=== PATIENT | female | born 1975 | race Two or more races ===

== ENCOUNTER → 2024-03-12 | Outpatient (CLI) | payer MEDICAID, SELFPAY ==
--- NOTE | 2024-03-12 09:30 | XR_ITS ---
Examination: CT abdomen with intravenous contrast CT pelvis with intravenous contrast 2-D coronal reconstructions 2-D sagittal reconstructions Date and time of exam:March 12, 2024 at 1003 hours Comparison April 25, 2018 INDICATIONS: Abdominal pain constipation beginning 10 years ago. History kidney stones CTDI: vol (mGy) 9.67 DLP: (mGycm) 502 Technique: Multiple axial sections of the abdomen and pelvis have been obtained. 64 slice high-resolution scanner used. 3 mm axial sections have been obtained, post intravenous injection 60 cc [id number] 2-D sagittal, coronal reconstructions obtained. Low dose protocols were performed. One or more of the following dose reduction techniques were used; automated exposure control, adjustment of the mA and/or KV according to patient size, use of iterative reconstruction technique. Findings: No focal liver or splenic lesions Absent gallbladder No pancreatic or adrenal mass No renal or ureteral calculi, no hydronephrosis Aorta normal size Normal appendix 12 mm fat-containing umbilical hernia No bowel obstruction No diverticulitis Anteverted uterus with enlarged fundus as well as discrete 25 mm uterine fundal mass Thick-walled posterior right pelvic cystic mass 4.6 cm Urinary bladder intact Osseous structures intact IMPRESSION: Normal appendix No bowel obstruction Recommend pelvic sonography to assess enlarged fundus of the uterus, 25 mm uterine fundal mass, thick-walled posterior right pelvic cystic mass 4.6 cm
[2024-03-12 09:34] LABS: HCG Qualitative,Urine Negative
== END | disposition home or self-care (01) ==
PROVIDERS: PCP Physician Assistant; Referring Provider Physician Assistant; Visit Provider Physician Assistant
DX: R10.9 Unspecified abdominal pain (principal); Z32.00 Encounter for pregnancy test, result unknown
CPT/HCPCS: 74177; 81025; A4649; Q9967

== ENCOUNTER 2024-03-24 19:41 | Emergency (ER) | payer MEDICAID, SELFPAY ==
[2024-03-24 19:44] VITALS: BMI 37.2
[2024-03-24 20:28] VITALS: BP 172/93; PULSE 83; RESP 18; TEMP 36.9; O2SAT 96
--- NOTE | 2024-03-24 20:34 | XR_ITS ---
Examination: Pelvic ultrasound, transabdominal, complete Technique: Transabdominal ultrasound of the pelvis performed using grayscale imaging Date and time of exam: March 24, 2024 9:17 PM INDICATIONS: Thick walled right pelvic cystic mass 4.[address] examination March 12, 2024 FINDINGS: Uterus 11.4 x 4.9 x 7.1 cm Uterine fundal mass 3.0 x 2.4 cm Endometrial stripe 0.2 cm Right ovary 3.4 x 2.0 x 3.3 cm arterial flow 21 mm x 20 mm cyst Left ovary 2.7 x 1.3 x 2.2 cm arterial flow IMPRESSION: Uterine fibroid degeneration 3.0 x 2.4 x 2.4 cm Right ovarian cyst 1.6 x 2.0 x 2.1 cm
--- NOTE | 2024-03-24 20:35 | PD.EDRME ---
Rapid Medical Screening Exam E Arrival date/time: 03/24/24 19:41 48-year-old female presents emergency department complaining of right pelvic pain that has been progressively getting worse for the last 4 days. Chief Complaint: Abdominal Pain Time Seen by Provider: 03/24/24 20:27 Vital signs: Vital Signs Temperature 98.5 F 03/24/24 20:28 Pulse Rate 83 03/24/24 20:28 Respiratory Rate 18 03/24/24 20:28 Blood Pressure 172/93 H 03/24/24 20:28 Pulse Oximetry (%) 96 03/24/24 20:28 Oxygen Delivery Method Room Air 03/24/24 20:28 Vital signs reviewed by provider: Yes
[2024-03-24 21:17] LABS: Basophils # (Auto) 0.1 Thou/mm3 (0.0-0.2); Basophils % (Auto) 1 % (0-2.5); Eosinophils # (Auto) 0.1 Thou/mm3 (0.0-0.5); Eosinophils % (Auto) 1 % (0-10); Hematocrit 36.8 % (36.0-46.0); Hemoglobin 12.3 g/dL (12.0-16.0); Immature Granulocytes % (Auto) 0 % (0-0); Immature Granulocytes Auto 0.02 Thou/mm3 (0.00-0.00); Lymphocytes % (Auto) 32 % (10-50); Mean Corpuscular HGB Conc 33.4 g/dl (31.0-37.0); Mean Corpuscular Hemoglobin 28.1 pg (25.0-35.0); Mean Corpuscular Volume 84 fL (80-100); Monocytes # (Auto) 0.6 Thou/mm3 (0.0-0.8); Monocytes % (Auto) 7 % (0-12); Neutrophils # (Auto) 5.6 Thou/mm3 (1.8-7.7); Neutrophils % (Auto) 60 % (37-80); Nucleated Red Blood Cell % 0 /100 WBC (0); Platelet Count 302 Thou/mm3 (140-440); RDW Standard Deviation 42.9 fL (36.4-46.3); Red Blood Count 4.38 Miln/mm3 (4.00-5.20); White Blood Count 9.3 Thou/mm3 (3.6-11.0)
[2024-03-24 21:47] LABS: Alanine Aminotransferase 18 U/L (10-49); Albumin, Serum 4.8 gm/dL (3.5-5.0); Albumin/Globulin Ratio 1.6 (1.2-2.2); Alkaline Phosphatase 78 U/L (46-116); Anion Gap 9 (7-16); Aspartate Amino Transferase 21 U/L (0-34); BUN/Creatinine Ratio 19 Ratio (12-20); Blood Urea Nitrogen 15 mg/dL (9-23); Carbon Dioxide 26.3 mMol/L (20.0-31.0); Chloride 104 mMol/L (98-107); Creatinine (Component) 0.8 mg/dL (0.6-1.3); Estimated Creatinine Clearance 75.4 mL/min (>60); Glucose 90 mg/dL (74-106); Lipase 51 U/L (12-53); Osmolality,Calculated 278 (275-295); Potassium 3.8 mMol/L (3.4-5.1); Sodium 139 mMol/L (136-145); Total Protein 7.8 gm/dL (5.7-8.2); eGFR > 60 See Note
[2024-03-24 22:03] LABS: HCG,Qualitative Serum Negative
[2024-03-24 22:13] VITALS: BP 171/98; PULSE 64; RESP 19; TEMP 36.9; O2SAT 99
[2024-03-24] MEDS: KETOROLAC INJ 60 MG/2 ML VIAL 30 MG IM (22:13)
[2024-03-24 22:18] LABS: Collection Type, Urine Clean Catch
[2024-03-24 22:29] LABS: Bacteria,Urine Rare; Bilirubin,Urine Negative (Negative); Blood,Urine Negative (Negative); Clarity,Urine Clear (Clear/Hazy); Color,Urine Colorless (Lt Yel-Yel); Culture Indicated,Urine Not Indicated; Glucose, Urine Negative (Negative); Ketones,Urine Negative (Negative); Leukocyte Esterase,Urine Negative (Negative); Nitrite,Urine Negative (Negative); PH,Urine 6.5 (5.0-7.0); Protein,Urine Negative (Neg - Trace); RBC,Urine < 1 /hpf (0-3); Squamous Epithelial Cell,Urine 1 /hpf (0-5); Urobilinogen,Urine Negative mg/dL (0.0-1.0); WBC,Urine < 1 /hpf (0-5)
--- NOTE | 2024-03-24 23:47 | PD.EDABDPN ---
ED Abdominal Pain RME/HPI General Chief Complaint: Abdominal Pain Stated complaint: abd pain Time seen by provider: 03/24/24 20:27 Arrival date/time: 03/24/24 19:41 48-year-old female presents emergency department complaining of right pelvic pain that has been progressively getting worse for the last 4 days. Patient reports she has had this pain for over 4 years. Patient denies any fever, chills, vaginal bleeding, dysuria, flank pain, or any other associated symptom. Source: patient Mode of arrival: ambulatory Limitations: no limitations RME / HPI RME / HPI narrative: 03/24/24 19:41 48-year-old female presents emergency department complaining of right pelvic pain that has been progressively getting worse for the last 4 days. Related Data Previous Rx's ?Medication ?Instructions ?Recorded ibuprofen 800 mg tablet 800 mg PO TID PRN pain #30 tabs 02/05/20 ibuprofen 600 mg tablet 600 mg PO Q8H PRN pain #20 tabs 03/24/24 Allergies Allergy/AdvReac Type Severity Reaction Status Date / Time No Known Allergies Allergy Verified 03/24/24 19:43 Review of Systems Review of Systems Systems Reviewed: All systems reviewed, normal except as documented Constitutional Constitutional: Reports system reviewed and no additional complaints, except as documented, Denies body ache(s), Denies chills and Denies fever(s) Eyes Eyes: Reports system reviewed and no additional complaints, except as documented and Denies change in vision ENT Ears, Nose, Mouth, and Throat: Reports system reviewed and no additional complaints, except as documented, Denies disequilibrium, Denies dizziness, Denies sore throat and Denies vertigo Cardiovascular Cardiovascular: Reports system reviewed and no additional complaints, except as documented, Denies chest pain and Denies dyspnea Respiratory Respiratory: Reports system reviewed and no additional complaints, except as documented, Denies chest congestion, Denies cough and Denies dyspnea Gastrointestinal Gastrointestinal: Reports system reviewed and no additional complaints, except as documented, Denies abdominal pain, Denies nausea and Denies vomiting Genitourinary Genitourinary: Reports other (Pelvic pain) Musculoskeletal Musculoskeletal: Reports system reviewed and no additional complaints, except as documented, Denies abnormal gait and Denies arthralgias Integumentary/Breasts Skin/Breast: Reports system reviewed and no additional complaints, except as documented, Denies erythema, Denies rash and Denies wounds Neurologic Neurologic: Reports system reviewed and no additional complaints, except as documented, Denies abnormal gait, Denies disequilibrium, Denies dizziness and Denies vertigo Past Medical History Past Medical History NEUROLOGIC: Negative Neurological Disorders or Seizures CARDIAC: Negative Cardiac Disorders or Congestive Heart Failure RESPIRATORY: Negative Chronic Obstructive Pulmonary Disease (COPD) GASTROINTESTINAL: Positive Gastrointestinal Disorders, Gall Bladder Disease (LAP) and Hemorrhoids (HAD SURGERY) GENITOURINARY: Negative Genitourinary Disorders or Renal Disease REPRODUCTIVE: Positive Previous Pregnancies (X3) MUSCULOSKELETAL: Positive Musculoskeletal Disorders and Arthritis ENDOCRINE: Negative Endocrine Disorders, Diabetes Mellitus Type 1 or Diabetes Mellitus Type 2 HEMATOLOGIC: Negative Blood Disorders OTHER HISTORY: Positive Chicken Pox; Negative Autoimmune Disease, Blood Transfusions, Blood Transfusion Reaction or Anesthesia Reactions Surgical History SURGICAL: Positive Section Social History SMOKING STATUS: Never smoker ED Exam General Limitations: Present no limitations General appearance: Present alert and in no apparent distress Head Head exam: Present atraumatic Eye Eye exam: Present normal appearance, PERRL and EOMI ENT ENT exam: Present normal exam, normal oropharynx and mucous membranes moist Neck Neck exam: Present normal inspection, full ROM and trachea midline Chest Chest inspection: Present normal inspection and symmetric chest wall rise Respiratory Respiratory exam: Present normal lung sounds bilaterally Cardiovascular Cardiovascular exam: Present regular rate, normal rhythm and normal heart sounds Abdominal Exam Abdominal exam: Present soft and normal bowel sounds Extremities Exam Extremities exam: Present normal inspection and full ROM Back Exam Back exam: Present normal inspection and full ROM Neurological Exam Neurological exam: Present alert, oriented X3 and CN II-XII intact Psychiatric Psychiatric exam: Present normal affect and normal mood Skin Skin exam: Present warm, dry, intact and normal color Course Quality Measures none Orders Category Date Time Status US pelvic complete Stat Exams 03/24/24 20:34 Completed CBC Stat Lab 03/24/24 21:06 Completed CMP [Comprehensive Metabolic Panel] Stat Lab 03/24/24 21:06 Completed HCG,Qualitative Serum Stat Lab 03/24/24 21:06 Completed Lipase Stat Lab 03/24/24 21:06 Completed Urinalysis, C/S if Indicated Stat Lab 03/24/24 21:56 Completed Ketorolac Inj [Toradol Inj] Med 03/24/24 20:35 Discontinued 30 mg IM X1 ONE Vital Signs Vital signs: Vital Signs Temperature 98.5 F 03/24/24 20:28 Pulse Rate 83 03/24/24 20:28 Respiratory Rate 18 03/24/24 20:28 Blood Pressure 172/93 H 03/24/24 20:28 Pulse Oximetry (%) 96 03/24/24 20:28 Oxygen Delivery Method Room Air 03/24/24 20:28 96% room air within normal limits Abdominal Pain MDM MDM Narrative MDM Narrative:: 48-year-old female presents emergency department complaining of right pelvic pain that has been progressively getting worse for the last 4 days. Patient reports she has had this pain for over 4 years. Patient denies any fever, chills, vaginal bleeding, dysuria, flank pain, or any other associated symptom. CBC was unremarkable for any leukocytosis. CMP was unremarkable for any elevated LFTs or gross electro abnormalities. Urinalysis was also unremarkable. Ultrasound pelvis impression: Uterine fibroid degeneration 3.0 x 2.4 x 2.4 cm Right ovarian cyst 1.6 x 2.0 x 2.1 cm Patient reports significant improvement in pain after given Toradol IM. Patient appears nontoxic and is hemodynamically stable. Patient discharged and instructed to follow-up with primary care provider return to emergency department for any worsening symptoms or as needed. Patient data External records reviewed:: [facility] previous records Clinical information provided by:: patient Social determinants that could affect healthcare access:: none Patient has the following chronic illnesses:: See chart How is presenting disease/condition affected by chronic disease/condition?: uneffected by Evaluation data The following diagnostics were reviewed and interpreted by me:: lab results and radiology exam(s) Lab and/or radiology exams considered but not ordered:: Ordered Interpretation Summary: Interpreted by me Medications / Prescriptions Medications or Prescriptions considered but not ordered:: Ordered Medication administrations:: Medication Administration History Discontinued Medications Ketorolac Tromethamine (Ketorolac Inj 60 Mg/2 Ml Vial) 30 mg IM X1 ONE Stop: 03/24/24 20:36 Last Admin: 03/24/24 22:13 Dose: 30 mg Documented By: KG Given Consultations Consultation(s) initiated? (list below): No Diagnosis Differential diagnosis abdominal pain: abdominal pain, acute appendicitis, calculus of kidney, constipation, diverticulitis, endometriosis, gastroenteritis, pancreatitis and small bowel obstruction Most likely diagnosis given after review of the tests above:: Ovarian cyst Admission Indicated Admission indicated?: not indicated Admission Request Was there a request for admission?: No Disposition Plan Disposition Plan: Discharge Discharge Attestation Discharge Attestation: The patient and all family members were given an opportunity to ask questions and understood the discharge instructions. Discharge instructions specifically effects, indications for sooner follow up or return to the emergency department, and the expected course of current diagnosis. Patient condition: Stable Discharge Plan Plan Patient Disposition: HOME (Self Care) Disposition Comment: Stable Prescriptions/Referrals Prescriptions/Med Rec: New ibuprofen 600 mg tablet 600 mg PO Q8H PRN (Reason: pain) Qty: 20 0RF No Action ibuprofen 800 mg tablet 800 mg PO TID PRN (Reason: pain) Qty: 30 0RF Referrals: Loida Hernandez PA-C [Primary Care Provider] - In 1 week Problem List Clinical Impression: Ovarian cyst Patient/Caregiver Discharge Instructions Discharge Activity: activity as tolerated Education Materials: Treatment for Ovarian Cysts, ED Ovarian Cyst Additional Instructions: Take ibuprofen or Tylenol as needed for pain. Follow-up with primary care provider in 2 to 3 days and request referral to [facility]. Return to the emergency department for any worsening symptoms such as pain, fever, vomiting, or as needed. Print Language: Cypriot Stand Alone Forms: Becky Award Info., Patient Portal Info Letter LAURA/DILLAN Supervising Physician MARTINA Supervising Physician: Dr. Kinsey
== END 2024-03-24 23:59 | disposition home or self-care (01) ==
PROVIDERS: Emergency Provider Emergency Medicine; PCP Physician Assistant
DX: N83.201 Unspecified ovarian cyst, right side (principal)
CPT/HCPCS: 36415; 76856; 80053; 81001; 83690; 84703; 85025; 96372; 99284; J1885

== ENCOUNTER → 2024-04-12 | Outpatient (CLI) | payer MEDICAID, SELFPAY ==
--- NOTE | 2024-04-12 | XR_ITS ---
Examination: Wrist, right 3 views Technique: Wrist AP, oblique, lateral 3 views Date and time of exam: April 12, 2024 1122 hours INDICATIONS: Patient fell last year with wrist fracture post surgery May 2023, persistent wrist pain. 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
--- NOTE | 2024-04-12 | XR_ITS ---
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
== END | disposition home or self-care (01) ==
LOC: CDIM 10:48
PROVIDERS: PCP Physician Assistant
DX: S52.611A Displaced fracture of right ulna styloid process, initial encounter for closed fracture (principal); W19.XXXA Unspecified fall, initial encounter
CPT/HCPCS: 73110; 73130

== ENCOUNTER 2024-05-13 11:30 | Outpatient (RCR) | payer MEDICAID, SELFPAY ==
--- NOTE | 2024-05-02 14:14 | PTNOTE_ITS ---
PT OP Initial Eval Patient Information Outpatient Physical Therapy Treatment Date: 05/02/24 Visit Reasons: Low back pain Medical Diagnosis: M54.5 M54.15 Treatment Dx #1: LBP Start of Care: 05/02/24 Date of Onset: 1 yr ago Smoking Status Smoking Status: Never smoker Initial Assessment Subjective: Pt is 48 yr old cape verdean speaking female who fell from a ladder at home and since then has had LBP and points to the belt line as site of pain and the lower glute is tender but doesn't run down the LE. This pain limits HH chore tolerance to 10 mins and then she rests due to pain. PMH: takes ibuprofen for the LBP Imaging: Moderate sclerosis about the SI joints, Symmetrical sacral foramina, Satisfactory alignment sacrococcygeal segments, No acute fracture Pt goal: less LBP Objective: ? Trunk ArOM: ? B SB 50% of normal with pain ? Extension: 20% with pain around L4-5, L5-S1 ? Flexion: 10 from floor with LBP ? B rotation: 60% with pain ? R SLR ROM: 45 deg. L SLR: 50 deg ? TTP: moderate paraspinals L5-S1 ? Assessment: ? Pt presents with trunk flexion sensitivity and overlying myofascial pain ? and TTP around L5-S1 consistent with ? lower lumbar disc bulge(s) . Pt requires skilled therapy in order to decrease ? pain and improve sitting/standing tolerance and has fair rehab potential. Eval ?followed by [facility]P printout. Short Term and Shelter Goals 1. Ind with HEP ? 2. Improved sitting/standing tolerance to 30 minutes with < =4/10 LBP ? 3. Decreased lower paraspinal TTP from mod to min 4. Improved HH chore tolerance to at least 20 minutes with <=3/10 LBP and no ?increase in LE ssx ? Treatment Plan 1. Manual therapy ? 2. Therex ? 3. Modalities as indicated, moist heat, ice, estim, mechanical traction Frequency and Duration: 1-2x a week for 6 Rx sessions plus the eval Certification Dates: 05/02/24 to 08/02/24 Procedure Charges OP PT Eval Mod Complex 30 minutes: Yes
--- NOTE | 2024-05-09 17:39 | PT.ODAYNRPT ---
PT Outpatient Daily Note OP Daily Note Outpatient Physical Therapy Treatment Date: 05/09/24 Visit Reasons: Low back pain Subjective: Same as time of evaluation Objective: See F/S for therex MHP: x7' Assessment: Difficulty with prone pressups due to R shoulder pain so she did repeated extension in standing. Plan: Continue per POC Length of Time (minutes) of Treatment: 30 Minutes Procedure Charges Therapeutic Exercise 30 minutes: Yes
--- NOTE | 2024-05-13 16:11 | PT.ODAYNRPT ---
PT Outpatient Daily Note OP Daily Note Outpatient Physical Therapy Treatment Date: 05/13/24 Visit Reasons: Low back pain Subjective: Pt arrived 10 mins late Objective: See F/S for therex Assessment: Difficulty with prone pressups due to R shoulder pain so she did repeated extension in standing. Plan: Continue per POC Length of Time (minutes) of Treatment: 20 Minutes Procedure Charges Therapeutic Exercise 15 minutes: Yes
== END 2024-05-20 23:59 | disposition home or self-care (01) ==
LOC: CPTX 11:30
PROVIDERS: PCP Physician Assistant; Referring Provider Physician Assistant; Visit Provider Physician Assistant
DX: M54.15 Radiculopathy, thoracolumbar region (principal)
CPT/HCPCS: 97110; 97162

== ENCOUNTER 2024-07-19 15:09 | Emergency (ER) | payer MEDICAID, SELFPAY ==
[2024-07-19 15:10] VITALS: BMI 35.1
[2024-07-19 15:17] VITALS: BP 144/89; PULSE 83; RESP 18; TEMP 37.1; O2SAT 97
--- NOTE | 2024-07-19 15:22 | XR_ITS ---
Examination: Pelvic ultrasound, transabdominal, complete Technique: Transabdominal ultrasound of the pelvis performed using grayscale imaging Date and time of exam: July 19, 2024 1545 hours INDICATIONS: Pelvic pain nausea vomiting beginning 4 days ago FINDINGS: Uterus 10.0 cm fundal fibroid 2.7 x 2.4 cm anterior uterine body fibroid 3.6 x 2.8 cm Endometrial stripe 0.5 cm Right ovary 2.7 cm arterial flow 11 mm follicular cyst Left ovary 4.1 cm arterial flow 25 mm cyst IMPRESSION: Uterine areas of fibroid degeneration, recommend 6 month follow up transvaginal pelvic sonography Incidental note right lower abdomen tubular noncompressible structure 6.0 x 1.5 x 2.9 cm, clinical correlation advised If appendicitis is a clinical consideration, suggest CT scan abdomen and pelvis post intravenous contrast follow-up
--- NOTE | 2024-07-19 15:23 | PD.EDRME ---
Rapid Medical Screening Exam E Arrival date/time: 07/19/24 15:09 48-year-old female presents to the emergency department for complaints of pelvic pain Chief Complaint: Abdominal Pain Vital signs: Vital Signs Temperature 98.8 F 07/19/24 15:17 Pulse Rate 83 07/19/24 15:17 Respiratory Rate 18 07/19/24 15:17 Blood Pressure 144/89 H 07/19/24 15:17 Pulse Oximetry (%) 97 07/19/24 15:17 Oxygen Delivery Method Room Air 07/19/24 15:17
[2024-07-19] MEDS: KETOROLAC INJ 30 MG/ML VIAL IM (15:30)
[2024-07-19 15:44] LABS: Basophils # (Auto) 0.1 Thou/mm3 (0.0-0.2); Basophils % (Auto) 1 % (0-2.5); Eosinophils # (Auto) 0.2 Thou/mm3 (0.0-0.5); Eosinophils % (Auto) 3 % (0-10); Hemoglobin 10.4 g/dL (12.0-16.0); Immature Granulocytes % (Auto) 0 % (0-0); Immature Granulocytes Auto 0.01 Thou/mm3 (0.00-0.00); Lymphocytes # (Auto) 2.4 Thou/mm3 (1.0-4.8); Lymphocytes % (Auto) 38 % (10-50); Mean Corpuscular HGB Conc 32.5 g/dl (31.0-37.0); Mean Corpuscular Hemoglobin 25.5 pg (25.0-35.0); Mean Corpuscular Volume 78 fL (80-100); Monocytes # (Auto) 0.5 Thou/mm3 (0.0-0.8); Monocytes % (Auto) 7 % (0-12); Neutrophils # (Auto) 3.1 Thou/mm3 (1.8-7.7); Neutrophils % (Auto) 50 % (37-80); Nucleated Red Blood Cell % 0 /100 WBC (0); Platelet Count 292 Thou/mm3 (140-440); RDW Standard Deviation 42.5 fL (36.4-46.3); Red Blood Count 4.08 Miln/mm3 (4.00-5.20); White Blood Count 6.2 Thou/mm3 (3.6-11.0)
[2024-07-19 16:04] LABS: Alanine Aminotransferase 21 U/L (10-49); Albumin, Serum 4.4 gm/dL (3.5-5.0); Albumin/Globulin Ratio 1.8 (1.2-2.2); Alkaline Phosphatase 55 U/L (46-116); Anion Gap 11 (7-16); Aspartate Amino Transferase 26 U/L (0-34); BUN/Creatinine Ratio 13 Ratio (12-20); Blood Urea Nitrogen 8 mg/dL (9-23); Calcium 9.3 mg/dL (8.3-10.6); Calcium (Corrected) 9.3 mg/dL (8.5-10.1); Carbon Dioxide 24.7 mMol/L (20.0-31.0); Chloride 103 mMol/L (98-107); Creatinine (Component) 0.6 mg/dL (0.6-1.3); Estimated Creatinine Clearance 101.8 mL/min (>60); Globulin 2.4 gm/dL (2.3-3.5); Glucose 87 mg/dL (74-106); Lipase 36 U/L (12-53); Osmolality,Calculated 274 (275-295); Potassium 3.5 mMol/L (3.4-5.1); Sodium 139 mMol/L (136-145); Total Protein 6.8 gm/dL (5.7-8.2); eGFR > 60 See Note
[2024-07-19 16:26] LABS: Collection Type, Urine Clean Catch
[2024-07-19 16:46] LABS: HCG Qualitative,Urine Negative
[2024-07-19 18:15] LABS: Bacteria,Urine 2+; Bilirubin,Urine Negative (Negative); Blood,Urine Negative (Negative); Clarity,Urine Clear (Clear/Hazy); Color,Urine Lt-Yellow (Lt Yel-Yel); Glucose, Urine Negative (Negative); Ketones,Urine Negative (Negative); Leukocyte Esterase,Urine Negative (Negative); Nitrite,Urine Negative (Negative); Protein,Urine Negative (Neg - Trace); RBC,Urine 1 /hpf (0-3); Specific Gravity,Urine 1.026 (1.001-1.035); Squamous Epithelial Cell,Urine 2 /hpf (0-5); Urobilinogen,Urine Negative mg/dL (0.0-1.0); WBC,Urine 1 /hpf (0-5)
[2024-07-19 18:28] LABS: Culture Indicated,Urine Yes
--- NOTE | 2024-07-19 18:50 | XR_ITS ---
Examination: CT abdomen with intravenous contrast CT pelvis with intravenous contrast 2-D coronal reconstructions 2-D sagittal reconstructions Date and time of exam:July 19, 20242027 hours INDICATIONS: Onset right lower abdominal pain today COMPARISON: March 12, 2024. CTDI: vol (mGy) 10 DLP: (mGycm) 567 Technique: Multiple axial sections of the abdomen and pelvis have been obtained. 64 slice high-resolution scanner used. 3 mm axial sections have been obtained, post intravenous injection 60 cc [id number]-[id number] 2-D sagittal, coronal reconstructions obtained. Low dose protocols were performed. One or more of the following dose reduction techniques were used; automated exposure control, adjustment of the mA and/or KV according to patient size, use of iterative reconstruction technique. Findings: No focal liver or splenic lesions No pancreatic mass No extrahepatic biliary tract dilatation No renal or ureteral calculi, no hydronephrosis Aorta normal size No bowel obstruction Normal appendix 15 mm fat-containing umbilical hernia Mildly prominent cervix Urinary bladder intact Osseous structures intact IMPRESSION: Recommend pelvic sonography to exclude cervical mass Normal appendix
--- NOTE | 2024-07-19 18:51 | EDNOTE_ITS ---
ED Abdominal Pain RME/HPI General Chief Complaint: Abdominal Pain Stated complaint: RIGHT LOWER ABD PAIN X5DAYS WITH NAUSEA Time seen by provider: 07/19/24 17:35 Arrival date/time: 07/19/24 15:09 RME / HPI RME / HPI narrative: 48-year-old female patient with no significant past medical history, came in for evaluation regarding right lower abdominal pain that has been ongoing for the last 4 days, associated with nausea but denies any vomiting no fever no diarrhea no constipation no dysuria no frequency no other complaints noted. Related Data Previous Rx's ?Medication ?Instructions ?Recorded ibuprofen 800 mg tablet 800 mg PO TID PRN pain #30 t abs 02/05/20 ibuprofen 600 mg tablet 600 mg PO Q8H PRN pain #20 t abs 03/24/24 dicyclomine 20 mg tablet 20 mg PO TID PRN abdominal p ain 07/19/24 #20 tabs ibuprofen 800 mg tablet 800 mg PO Q8H PRN pain #30 t abs 07/19/24 Allergies Allergy/AdvReac Type Severity Reaction Status Date / Time No Known Allergies Allergy Verified 07/19/24 15:12 Review of Systems Review of Systems Narrative Review of Systems: Review of system reviewed and within normal limits except mentioned in HPI ED Exam Narrative Physical exam: VITAL SIGNS: Reviewed. GENERAL APPEARANCE: Alert and interactive, follows commands, no acute distress, HEAD AND FACE: Non-traumatic. ENT: PERRL, pink conjunctivitis, eyelid no trauma, Mucous membrane moist. NECK: Supple, nontender, no nuchal rigidity. CHEST: No tenderness, no crepitus, no paradoxical movement, no retractions. LUNGS: Clear, well ventilated, symmetric, no rales, no wheezing, no ronchi, no stridor, good breath sounds bilaterally. HEART: Regular rate, regular rhythm, no murmur, no gallops. ABDOMEN: Soft, positive bowel sounds, nondistended, no guarding, right lower quadrant tenderness, no rebound, no masses, RECTAL: Deferred. GENITAL: Deferred. NEUROLOGICAL: Gross motor function intact sensory function intact, Appropriate for age. MUSCULOSKELETAL: low back nontender, full range of motion. EXTREMITIES: Nontender, full range of motion. SKIN: Color pink, dry, no rash, no lacerations, no abrasions, no contusions. LYMPHATICS: Deferred. Course Quality Measures none Orders Category Date Time Status CT Screening NOW Care 07/19/24 18:50 Completed Insert IV NOW Care 07/19/24 19:[address] abdomen pelvis w con Stat Exams 07/19/24 18:50 Completed US pelvic complete Stat Exams 07/19/24 15:22 Completed CBC Stat Lab 07/19/24 15:33 Completed Comprehensive Metabolic Panel Stat Lab 07/19/24 15:33 Completed HCG Qualitative,Urine Stat Lab 07/19/24 16:12 Completed Lipase Stat Lab 07/19/24 15:33 Completed UA, C/S IF [Urinalysis, C/S if Indicated] Stat Lab 07/19/24 16:12 Completed Urine Culture Stat Lab 07/19/24 16:12 Received Ketorolac Inj [Toradol Inj] Med 07/19/24 15:22 Discontinued 30 mg IM X1 ONE cefTRIAXone [Rocephin] 1,000 mg Med 07/19/24 21:28 Discontinued Lidocaine 1% 20 ml [Xylocaine 1% 20 ML] 2.1 ml IM X1 Vital Signs Vital signs: Vital Signs Temperature 98.8 F 07/19/24 15:17 Pulse Rate 83 07/19/24 15:17 Respiratory Rate 18 07/19/24 15:17 Blood Pressure 144/89 H 07/19/24 15:17 Pulse Oximetry (%) 97 07/19/24 15:17 Oxygen Delivery Method Room Air 07/19/24 15:17 Abdominal Pain MDM MDM Narrative MDM Narrative:: 48-year-old female patient with no significant past medical history, came in for evaluation regarding right lower abdominal pain that has been ongoing for the last 4 days, associated with nausea but denies any vomiting no fever no diarrhea no constipation no dysuria no frequency no other complaints noted. Patient's laboratory workup CBC came back unremarkable. Urinalysis no UTI ultrasound of the pelvis showed possible uterine fibroma, CT scan of the abdomen pelvis came back unremarkable. Results discussed with the patient. Family and patient was advised to follow-up closely with [facility]Y AND DISTRIBUTION MANAGER. Patient appears nontoxic and hemodynamically stable .Decision to discharge the patient. The patient/family was given an opportunity to ask questions and understood their discharge instructions. Discharge instructions specifically included follow up provider and time frame, current and/or new medications and possible side effects, indications for sooner follow up or return to the emergency department, and the expected course of current diagnosis. Urinalysis no UTI Patient reports feeling better as well and giving evidence of significant clinical improvement, I believe patient is now a candidate for discharge. Patient data External records reviewed:: None Clinical information provided by:: patient Social determinants that could affect healthcare access:: none Patient has the following chronic illnesses:: None How is presenting disease/condition affected by chronic disease/condition?: no chronic disease Evaluation data The following diagnostics were reviewed and interpreted by me:: lab results and radiology exam(s) Lab and/or radiology exams considered but not ordered:: None Interpretation Summary: See results MDM Medications / Prescriptions Medications or Prescriptions considered but not ordered:: None Medication administrations:: Medication Administration History Discontinued Medications Ceftriaxone Sodium 1,000 mg/ (Lidocaine HCl 2.1 ml) 0 mg IM X1 ONE Stop: 07/19/24 21:29 Last Admin: 07/19/24 22:33 Dose: 1,000 mg Documented By: BD Ketorolac Tromethamine (Ketorolac Inj 30 Mg/Ml Vial) 30 mg IM X1 ONE Stop: 07/19/24 15:23 Last Admin: 07/19/24 15:30 Dose: 30 mg Documented By: OA Ceftriaxone and Toradol Consultations Consultation(s) initiated? (list below): No Diagnosis Differential diagnosis abdominal pain: abdominal pain, acute appendicitis and constipation Most likely diagnosis given after review of the tests above:: Uterine fibroma Admission Indicated Admission indicated?: not indicated Explain why admission is indicated or not indicated:: None Admission Request Was there a request for admission?: No Disposition Plan Disposition Plan: Discharge Discharge Attestation Discharge Attestation: The patient and all family members were given an opportunity to ask questions and understood the discharge instructions. Discharge instructions specifically effects, indications for sooner follow up or return to the emergency department, and the expected course of current diagnosis. Patient condition: Stable Discharge Plan Plan Patient Disposition: HOME (Self Care) Discharge Disposition comment: Stable Prescriptions/Referrals Prescriptions/Med Rec: New ibuprofen 800 mg tablet 800 mg PO Q8H PRN (Reason: pain) Qty: 30 0RF dicyclomine 20 mg tablet 20 mg PO TID PRN (Reason: abdominal pain) Qty: 20 0RF No Action ibuprofen 800 mg tablet 800 mg PO TID PRN (Reason: pain) Qty: 30 0RF ibuprofen 600 mg tablet 600 mg PO Q8H PRN (Reason: pain) Qty: 20 0RF Referrals: Loida Hernandez PA-C [Primary Care Provider] - In 1 week Problem List Clinical Impression: Abdominal pain, Uterus fibroma Patient/Caregiver Discharge Instructions Discharge Activity: activity as tolerated Education Materials: Abdominal Pain Additional Instructions: Thank you for the opportunity for serving you today. You are stable for discharged . You are advised to: Follow-up with your PCP in 1 to 2 days and as per referral to [facility]Y AND DISTRIBUTION MANAGER Return to ED for worsening of symptoms Increase oral fluids Take medication as prescribed Print Language: Marshallese Stand Alone Forms: [facility]y Award Info., Patient Portal Info Letter
[2024-07-19] MEDS: cefTRIAXone 1,000 MG, LIDOCAINE 1% 20 ML 2.1 ML IM (22:33)
== END 2024-07-19 22:36 | disposition home or self-care (01) ==
PROVIDERS: Nurse Practitioner Primary Care; Emergency Provider Emergency Medicine; PCP Physician Assistant
DX: D25.9 Leiomyoma of uterus, unspecified (principal); R10.31 Right lower quadrant pain
CPT/HCPCS: 36415; 74177; 76856; 80053; 81001; 81025; 83690; 85025; 87086; 96372; 99285; A4649; J0696; J1885; J3490; Q9967

== ENCOUNTER 2024-08-20 21:02 | Emergency (ER) | payer MEDICAID, SELFPAY ==
[2024-08-20 21:09] VITALS: BP 162/99; PULSE 77; RESP 18; TEMP 36.9; O2SAT 99
--- NOTE | 2024-08-20 21:24 | PD.EDBACK ---
ED Back Injury Pain RME/HPI General Chief Complaint: Back Pain/Injury Stated Complaint: RIGHT LOWER BACK PAIN Time Seen by Provider: 08/20/24 21:21 Arrival date/time: 08/20/24 21:02 48F with no significant PMH presents to ED with R lower back pain that radiates to buttocks for 1 year since she fell. Patient denies radiation down legs and RLE swelling. Patient also denies skin rash/pain. Limitations: no limitations Related Data Previous Rx's ?Medication ?Instructions ?Recorded ibuprofen 800 mg tablet 800 mg PO TID PRN pain #30 tabs 02/05/20 ibuprofen 600 mg tablet 600 mg PO Q8H PRN pain #20 tabs 03/24/24 dicyclomine 20 mg tablet 20 mg PO TID PRN abdominal pain 07/19/24 #20 tabs ibuprofen 800 mg tablet 800 mg PO Q8H PRN pain #30 tabs 07/19/24 Allergies Allergy/AdvReac Type Severity Reaction Status Date / Time No Known Allergies Allergy Verified 08/20/24 21:02 Review of Systems Review of Systems Systems Reviewed: All systems reviewed, normal except as documented Constitutional Constitutional: Reports system reviewed and no additional complaints, except as documented, Denies fever(s) and Denies headache(s) ENT Ears, Nose, Mouth, and Throat: Denies disequilibrium and Denies headache(s) Cardiovascular Cardiovascular: Reports system reviewed and no additional complaints, except as documented, Denies chest pain and Denies dyspnea Respiratory Respiratory: Reports system reviewed and no additional complaints, except as documented, Denies cough and Denies dyspnea Gastrointestinal Gastrointestinal: Reports system reviewed and no additional complaints, except as documented, Denies abdominal pain, Denies nausea and Denies vomiting Musculoskeletal Musculoskeletal: Reports as per HPI and Reports back pain Neurologic Neurologic: Reports system reviewed and no additional complaints, except as documented, Denies confusion, Denies disequilibrium and Denies headache(s) Psychiatric Psychiatric: Denies confusion Past Medical History Past Medical History NEUROLOGIC: Negative Neurological Disorders or Seizures CARDIAC: Negative Cardiac Disorders or Congestive Heart Failure RESPIRATORY: Negative Chronic Obstructive Pulmonary Disease (COPD) or Asthma GASTROINTESTINAL: Positive Gastrointestinal Disorders, Gall Bladder Disease (LAP) and Hemorrhoids (HAD SURGERY) GENITOURINARY: Negative Genitourinary Disorders or Renal Disease REPRODUCTIVE: Positive Previous Pregnancies (X3) MUSCULOSKELETAL: Positive Musculoskeletal Disorders and Arthritis ENDOCRINE: Negative Endocrine Disorders, Diabetes Mellitus Type 1 or Diabetes Mellitus Type 2 HEMATOLOGIC: Negative Blood Disorders or Sickle Cell Disease OTHER HISTORY: Positive Chicken Pox; Negative Autoimmune Disease, Blood Transfusions, Blood Transfusion Reaction or Anesthesia Reactions Surgical History SURGICAL: Positive Section Social History SMOKING STATUS: Never smoker ED Exam General Limitations: Present no limitations General appearance: Present alert and in no apparent distress Head Head exam: Present atraumatic Eye Eye exam: Present normal appearance, PERRL and EOMI ENT ENT exam: Present normal exam, normal oropharynx and mucous membranes moist Neck Neck exam: Present normal inspection, full ROM and trachea midline Chest Chest inspection: Present normal inspection and symmetric chest wall rise Respiratory Respiratory exam: Present normal lung sounds bilaterally Cardiovascular Cardiovascular exam: Present regular rate, normal rhythm and normal heart sounds Abdominal Exam Abdominal exam: Present soft and normal bowel sounds Extremities Exam Extremities exam: Present normal inspection and full ROM Back Exam Back exam: Present normal inspection and full ROM Neurological Exam Neurological exam: Present alert, oriented X3 and CN II-XII intact Psychiatric Psychiatric exam: Present normal affect and normal mood Skin Skin exam: Present warm, dry, intact and normal color Course Quality Measures none Orders Category Date Time Status Ketorolac Inj [Toradol Inj] Med 08/20/24 21:22 Discontinued 60 mg IM X1 ONE Vital Signs Vital signs: Vital Signs Temperature 98.4 F 08/20/24 21:09 Pulse Rate 77 08/20/24 21:09 Respiratory Rate 18 08/20/24 21:09 Blood Pressure 162/99 H 08/20/24 21:09 Pulse Oximetry (%) 99 08/20/24 21:09 Oxygen Delivery Method Room Air 08/20/24 21:09 O2 at 99% on RA and WNLs Back Pain / Injury MDM Narrative MDM Narrative:: 48F with no significant PMH presents to ED with R lower back pain that radiates to buttocks for 1 year since she fell. Patient denies radiation down legs and RLE swelling. Patient also denies skin rash/pain. Physical exam reveals no gross abnormality of RLE. Gait normal. Patient is afebrile, calm, and alert. Meds and delinquency counselor given. Patient data External records reviewed:: [facility] previous records Clinical information provided by:: patient Social determinants that could affect healthcare access:: none Patient has the following chronic illnesses:: none How is presenting disease/condition affected by chronic disease/condition?: no chronic disease Evaluation data The following diagnostics were reviewed and interpreted by me:: other (specify) (none) Lab and/or radiology exams considered but not ordered:: not ordered Interpretation Summary: n/a Medications / Prescriptions Medications or Prescriptions considered but not ordered:: ordered Medication administrations:: Medication Administration History Discontinued Medications Ketorolac Tromethamine (Ketorolac Inj 60 Mg/2 Ml Vial) 60 mg IM X1 ONE Stop: 08/20/24 21:23 above Consultations Consultation(s) initiated? (list below): No Diagnosis Differential diagnosis back pain/injury: lumbar radiculopathy, sciatica, strain of lumbar region, renal colic, pyelonephritis, thoracic back pain, AAA and discitis Most likely diagnosis given after review of the tests above:: sciatica Admission Indicated Admission indicated?: not indicated Admission Request Was there a request for admission?: No Disposition Plan Disposition Plan: Discharge Discharge Attestation Discharge Attestation: The patient and all family members were given an opportunity to ask questions and understood the discharge instructions. Discharge instructions specifically effects, indications for sooner follow up or return to the emergency department, and the expected course of current diagnosis. Patient condition: Stable Discharge Plan Plan Patient Disposition: HOME (Self Care) Discharge Disposition comment: Stable Prescriptions/Referrals Prescriptions/Med Rec: No Action ibuprofen 800 mg tablet 800 mg PO TID PRN (Reason: pain) Qty: 30 0RF ibuprofen 600 mg tablet 600 mg PO Q8H PRN (Reason: pain) Qty: 20 0RF ibuprofen 800 mg tablet 800 mg PO Q8H PRN (Reason: pain) Qty: 30 0RF dicyclomine 20 mg tablet 20 mg PO TID PRN (Reason: abdominal pain) Qty: 20 0RF Problem List Clinical Impression: Sciatica Patient/Caregiver Discharge Instructions Education Materials: ED Sciatica Additional Instructions: Please follow-up with PCP within 24-48 hours and return immediately if symptoms worsen. If problem persists, recommend outpatient PT and/or MRI follow-up. In the meantime, rest, use ice/heat, and/or compression. Print Language: Polish Stand Alone Forms: Patient Portal Info Letter PA/[employer] SPECIALIST Supervising Physician LAURA/DILLAN Supervising Physician: Dr. Lewis
[2024-08-20] MEDS: KETOROLAC INJ 60 MG/2 ML VIAL IM (21:28)
== END 2024-08-20 21:35 | disposition home or self-care (01) ==
LOC: SERX 21:40
PROVIDERS: Emergency Provider Emergency Medicine
DX: M54.40 Lumbago with sciatica, unspecified side (principal)
CPT/HCPCS: 96372; 99283; J1885